=== PATIENT | female | born 1995 | race Asian ===

== ENCOUNTER 2017-03-28 18:01 | Emergency (ER) | payer MEDICAID, OTHER ==
[~2017-03-28] VITALS: Ht 142.2 cm; Wt 42.0 kg
[2017-03-28] MEDS ORDERED: SODIUM CHLORIDE 0.9% 1,000 ML IV ONE ×2 (21:53→23:00)
[2017-03-28] MEDS ORDERED: LORAZEPAM 2MG/ML CPJ IV ONE (22:15)
[2017-03-28 23:22] LABS: CHLORIDE 103 mEq/L (98-107)
[2017-03-28 23:25] LABS: HEMATOCRIT. 43.1 % (36.0-48.0); HEMOGLOBIN. 14.9 g/dL (12.0-16.0); MEAN PLATELET VOLUME 8.1 fl (7.4-10.4); PLATELET 234 x1000/uL (130-400); RED BLOOD CELL COUNT 4.79 mill/uL (4.2-5.4); RED CELL DISTRIBUTION WIDTH 13.7 % (11.6-14.6)
[2017-03-28 23:27] LABS: INR 1.2
[2017-03-28 23:31] LABS: CARBON DIOXIDE 26 mEq/L (21-32); ETHANOL BLOOD < 10 mg/dL
[2017-03-29 00:10] LABS: PLATELET ESTIMATE NORMAL
[2017-03-29] MEDS ORDERED: POTASSIUM CHLORIDE 8 MEQ TABLET.SA PO SCH (00:15)
[2017-03-29] MEDS ORDERED: OLANZAPINE 10 MG/VIAL IM ONE (01:30)
[2017-03-29] MEDS ORDERED: LORAZEPAM 2MG/ML CPJ IV ONE (01:30)
[2017-03-29 04:18] VITALS: BP 143/95
== END 2017-03-29 04:50 ==
LOC: ER 18:34
DX: F20.9 Schizophrenia, unspecified (principal)
CPT/HCPCS: 36415; 80053; 80307; 80329; 84443; 85025; 85610; 93005; 96361; 96372; 96374; 96376; 99285; G0482; J2060; J3490; J7030; Z7610